=== PATIENT | female | born 2000 | race Two or more races ===

== ENCOUNTER 2021-11-09 12:13 | Emergency (ER) | payer SELFPAY ==
[2021-11-09 12:55] VITALS: BP 124/70; PULSE 82; RESP 18; TEMP 37; O2SAT 100
--- NOTE | 2021-11-09 12:56 | ED.GENADULT ---
HPI - General Adult General Chief complaint: Ear Stated complaint: right ear pain Time Seen by Provider: 11/09/21 12:56 Source: other (Does not speak Welsh. Has friend interpreting) Mode of arrival: ambulatory Limitations: language barrier History of Present Illness HPI narrative: 21-year-old female patient presents to the [facility] with complaints of right ear pain for the past 3 days. Patient states she did go swimming in some water about 10 or 15 days ago. Denies any discharge coming from the site that she is aware of but does have pain. Denies fevers, body aches or chills. Related Data Allergies Allergy/AdvReac Type Severity Reaction Status Date / Time Penicillins Allergy Rash Verified 11/09/21 12:54 Review of Systems Review of Systems: CONSTITUTIONAL: Denies fever, chills, or sweats. EYES: Denies visual changes, redness, or discharge. ENT: Denies rhinorrhea, congestion, sore throat, positive right otalgia. CARDIOVASCULAR: Denies chest pain, palpitations, or edema. RESPIRATORY: Denies cough or dyspnea. GASTROINTESTINAL: Denies abdominal pain, nausea, vomiting, or diarrhea. GENITOURINARY: Denies dysuria or hematuria. SKIN: Denies rash or itching. MUSCULOSKELETAL: Denies back pain, joint pain, or myalgia. NEUROLOGIC: Denies headache, numbness, or weakness. PSYCHIATRIC: Denies anxiety or depression. Exam Narrative: GENERAL: Well-appearing, well-nourished, and in no acute distress. HEAD: Normocephalic, atraumatic. EYES: PERRLA and EOMI. ENT: Nares clear, no rhinorrhea or epistaxis. Mucous membranes moist. The canal to the left ear does have some swelling and irritation. The canal to the right ear does have erythema, discharge swelling and irritation noted. NECK: Supple. No lymphadenopathy CHEST: Clear to auscultation. No respiratory distress. HEART: Regular rate and rhythm. No murmur heard. Normal peripheral pulses. ABDOMEN: Soft, nontender, nondistended, normal active bowel sounds. EXTREMITIES: Normal range of motion. No edema. SKIN: Warm, dry, no rash. NEURO: No focal deficits. Alert and oriented x3. Course Course Level of Care: Express Care Visit Vital Signs Vital signs: Vital signs reviewed Medical Decision Making MDM Narrative Medical decision making narrative: Discussed with patient that it does appear that she has an bilateral infection to both canals. I will discharge her home with an antibiotic eardrop that should help clear that up but I would advise not to do any swimming at least for the next 7 days while she is being treated for this. She can take Tylenol and ibuprofen as needed for pain [id number]. Patient verbalized understanding denies any other questions or concerns at this time. Differential Diagnosis Differential Diagnosis: Differential diagnosis: Otitis media, otitis externa, perforated TM, infection of the outer ear, foreign body or cerumen impaction, ruptured TM, acute mastoiditis, ligament otitis externa, dehydration, pneumonia, sepsis, dental or intraoral infection, TMJ dysfunction Discharge Plan Discharge Clinical Impression: Otitis externa Qualifiers: Otitis externa type: swimmer's ear Chronicity: acute Laterality: bilateral Qualified Code(s): H60.333 - Swimmer's ear, bilateral Patient Disposition: Home, Self-Care Condition: Stable Instructions: Antibiotic Form, Swimmer's Ear (ED) Additional Instructions: Return to the emergency department if: You have severe ear pain. You are suddenly unable to hear at all. You have new swelling in your face, behind your ears, or in your neck. You suddenly cannot move part of your face. Your face suddenly feels numb. Contact your healthcare provider if: You have a fever. Your signs and symptoms do not get better after 2 days of treatment. Your signs and symptoms go away for a time, but then come back. You have questions or concerns about your condition or care. Medicines: NSAIDs , such as ibuprofen, help decrease swelling,
== END 2021-11-09 13:05 | disposition home or self-care (01) ==
PROVIDERS: Emergency Provider Nurse Practitioner Family
DX: H60.333 Swimmer's ear, bilateral (principal)
CPT/HCPCS: 99203; G0463